=== PATIENT | male | born 1990 | race Caucasian/White ===

== ENCOUNTER 2022-05-23 22:06 | Observation (INO) ==
[2022-05-24 04:22] LABS: BUN/Creatinine Ratio 16 (6-26); Basophils % 0.1 %; Blood Urea Nitrogen 17 mg/dL (6-20); Calcium 9.2 mg/dL (8.6-10.3); Carbon Dioxide 22 mEq/L (23-29); Chloride 106 mEq/L (98-107); Glucose 128 mg/dL (70-105); Hematocrit 40.3 % (37.5-50.1); Hemoglobin 13.5 g/dL (12.9-16.9); Immature Granulocytes % 0.4 % (0-4); Lymphocytes # 2.1 K/mcL (0.6-4.6); Mean Corpuscular HGB Conc 33.5 g/dL (31.6-35.5); Mean Corpuscular Hemoglobin 29.6 pg (28.0-33.3); Mean Corpuscular Volume 88.4 fL (83.0-100.0); Mean Platelet Volume 10.7 fL (9.4-12.4); Monocytes # 0.9 K/mcL (0.0-1.3); Monocytes % 5.4 %; Neutrophils # 14.1 K/mcL (1.6-8.9); Osmolality,Calculated 287 (280-300); Platelet Count 287 K/mcL (140-400); Potassium 4.1 mEq/L (3.5-5.1); Red Blood Count 4.56 M/mcL (4.19-5.50); Red Cell Distribution Width 13.4 % (11.5-14.5); Segmented Neutrophils % 82.1 %; Sodium 137 mEq/L (136-145); White Blood Count 17.1 K/mcL (4.3-11.1)
[2022-05-24] MEDS ORDERED: Naloxone 0.4 MG/ML INJ IVP PRN (05:32)
[2022-05-24] MEDS ORDERED: Ondansetron ODT 4 MG TAB.RAPDIS SL PRN (05:32)
[2022-05-24] MEDS ORDERED: Melatonin 3 MG TABLET PO PRN (05:32)
[2022-05-24] MEDS ORDERED: Acetaminophen 325 MG TABLET PO PRN (05:32)
[2022-05-24] MEDS ORDERED: Dextrose Gel 15 GM/37.5 ML TUBE PO PRN ×2 (05:35)
[2022-05-24] MEDS ORDERED: *HR* Dextrose 50 % in Water (Syg) 50 ML SYRINGE IVP PRN (05:35)
[2022-05-24] MEDS ORDERED: D5% in Water 1,000 ML IVC PRN (05:35)
[2022-05-24] MEDS ORDERED: 0.9 % Sodium Chloride 1,000 ML IVC SCH (05:45)
[2022-05-24] MEDS ORDERED: cefTRIAXone 2,000 MG in 0.9 % Sodium Chloride Mini Bag 100 ML IVPB SCH (09:00)
[2022-05-24] MEDS ORDERED: Ketorolac 30 MG/ML VIAL IVP ONE (09:42)
== END 2022-05-24 11:00 | disposition home or self-care (01) ==
LOC: 3ANU → SUATTDRO 05-24 01:57
PROVIDERS: ADMIT Internal Medicine; ATTEND Registered Nurse